=== PATIENT | female | born 1985 | race African-American/Black ===

== ENCOUNTER 2021-06-19 23:35 | Emergency (ER) | payer MEDICAID ==
[~2021-06-19] VITALS: Ht 165.1 cm; Wt 79.0 kg
[2021-06-19 23:57] VITALS: BP 128/71
[2021-06-20] MEDS ORDERED: ERYT1OIN6 RIGHTEYE (00:17)
[2021-06-21] MEDS ORDERED: BENZ-16 MT (21:57)
== END 2021-06-20 00:30 | disposition home or self-care (01) ==
LOC: ER 23:35
DX: H10.9 Unspecified conjunctivitis (principal)
CPT/HCPCS: 99283

== ENCOUNTER 2021-06-21 19:54 | Emergency (ER) | payer MEDICAID ==
[~2021-06-21] VITALS: Ht 165.1 cm; Wt 79.0 kg
[~2021-06-21 19:54] MED LIST: ERYT1OIN6 RIGHTEYE
[2021-06-21] MEDS ORDERED: BENZ-16 MT (21:57)
[2021-06-21 22:30] VITALS: BP 120/76
== END 2021-06-21 22:56 | disposition home or self-care (01) ==
LOC: ER 19:54
DX: J20.9 Acute bronchitis, unspecified (principal); R05 Cough
CPT/HCPCS: 71045; 99283